=== PATIENT | female | born 1990 | race Caucasian/White ===

== ENCOUNTER → 2017-12-18 | Outpatient (CLI) | payer OTHER ==
[~2017-12-18] MED LIST: CALC-771 PO; ETHI1TAB18 PO; KET10 PO; LEVO50TA86 PO; LORA10CA3 PO; MULT-1335 PO; ONDA4TAB PO
== END ==
LOC: LAB 09:11
PROVIDERS: ATTEND Student in an Organized Health Care Education/Training Program
DX: O02.0 Blighted ovum and nonhydatidiform mole (principal); O99.280 Endocrine, nutritional and metabolic diseases complicating pregnancy, unspecified trimester
CPT/HCPCS: 36415; 84443; 84702

== ENCOUNTER → 2018-01-22 | Outpatient (CLI) | payer OTHER ==
[~2018-01-22] MED LIST changes: +SCOP1PAT16 ASDIRECTED
== END ==
LOC: LAB 12:46
PROVIDERS: ATTEND Student in an Organized Health Care Education/Training Program
DX: E03.9 Hypothyroidism, unspecified (principal)
CPT/HCPCS: 36415; 84443

== ENCOUNTER → 2018-01-31 | Outpatient (CLI) | payer OTHER ==
[~2018-01-31] MED LIST changes: +PROG200C16 PV
== END ==
LOC: LAB 12:02
PROVIDERS: ATTEND Student in an Organized Health Care Education/Training Program
DX: O09.299 Supervision of pregnancy with other poor reproductive or obstetric history, unspecified trimester (principal)
CPT/HCPCS: 36415; 84702

== ENCOUNTER → 2018-02-02 | Outpatient (CLI) | payer OTHER | LOC: LAB 12:10 | PROVIDERS: ATTEND Student in an Organized Health Care Education/Training Program | DX: O09.299 Supervision of pregnancy with other poor reproductive or obstetric history, unspecified trimester (principal) | CPT/HCPCS: 36415; 84702 ==

== ENCOUNTER → 2018-02-05 | Outpatient (CLI) | payer OTHER ==
[2018-02-07 12:45] LABS: PLATELET COUNT, AUTOMATED 258 K/uL (150-450)
== END ==
LOC: LAB 09:02
PROVIDERS: ATTEND Student in an Organized Health Care Education/Training Program
DX: Z34.91 Encounter for supervision of normal pregnancy, unspecified, first trimester (principal)
CPT/HCPCS: 36415; 84702; 85025; 86592; 86703; 86762; 86850; 86900; 86901; 87088; 87340

== ENCOUNTER → 2018-02-15 | Outpatient (CLI) | payer OTHER ==
[~2018-02-15] MED LIST changes: +ONDA4TAB97 PO
== END ==
LOC: LAB 08:06
PROVIDERS: ATTEND Student in an Organized Health Care Education/Training Program
DX: O99.280 Endocrine, nutritional and metabolic diseases complicating pregnancy, unspecified trimester (principal); E03.9 Hypothyroidism, unspecified
CPT/HCPCS: 36415; 84443; 87491; 87591

== ENCOUNTER → 2018-05-24 | Outpatient (CLI) | payer OTHER ==
--- NOTE | 2018-05-24 13:43 | RADIOLOGY IMAGING REPORT ---
FACILITY: [facility] PATIENT NAME: Danyell Bailey : 1990 MR: [id number] V: [id number] EXAM DATE: ORDERING PHYSICIAN: GARY DELGADILLO TECHNOLOGIST: [place] [facility] [place] Patient: Danyell Bailey : 1990 Visit/Account:[id number] Date of Sevice: 05/24/2018 EXAMINATION: Ultrasound transabdominal OB > 14 weeks with anatomic evaluation HISTORY: Anatomic survey COMPARISON: None. TECHNIQUE: Transabdominal imaging was performed for assessment of the fetus and maternal pelvic structures. T ransvaginal imaging was not performed. FINDINGS: Placenta: Posterior without previa. Uterus: Gravid, otherwise normal Cervix: Long and closed. Maternal Ovaries: Not visualized. Maternal and other adnexa findings: Not evaluated Intrauterine gestations: One. presentation: Breech heart rate: Normal and regular at 156 bpm Amniotic fluid index: 14.1 cm Largest amniotic fluid pocket: 4.08 cm Gestational Parameters: BPD: 4.68 cm 20 weeks/ two days, 50% HC: 17.68 cm 20 weeks/ two days, 43% AC: 16.57 cm 21 weeks/ five days, 87% FL: 3.31 cm 20 weeks/ three days, 50% Average ultrasound age (AUA): 20 weeks/five days, JANET 10/06/2018 Estimated gestational age by JANET: 20 weeks/one days, JANET 10/10/2018 Estimated weight (EFW): 386 grams +/- seven grams EFW for JANET: 86 percentile Anatomic Survey: Intracranial structures, 4-chamber heart, stomach, kidneys, urinary bladder, spine, 3-vessel cord and cord insertion are unremarkable. Two upper and two lower extremities visualized. Cardiac ventricula r outflow tracts, palate and lips are unremarkable in appearance. IMPRESSION: Single viable fetus in which presentation with an estimated gestational age by measureme nts of 20 weeks and five days. Estimated gestational age by LMP is 20 weeks and one day. Report Dictated By: Fatemeh Cerna MD at 05/24/2018 1:33 PM Report E-Signed By: Fatemeh Cerna MD at 05/24/2018 1:40 PM WSN:[id number]
== END ==
LOC: US 07:58
PROVIDERS: ATTEND Student in an Organized Health Care Education/Training Program
DX: Z02.9 Encounter for administrative examinations, unspecified (principal)

== ENCOUNTER → 2018-09-10 | Outpatient (CLI) | payer OTHER ==
[~2018-09-10] MED LIST changes: +DIPH0.5S2 IM
== END ==
LOC: LAB 08:21
PROVIDERS: ATTEND Advanced Practice Midwife
DX: Z36.85 Encounter for antenatal screening for Streptococcus B (principal)
CPT/HCPCS: 87081

== ENCOUNTER → 2018-09-21 | Outpatient (CLI) | payer OTHER | LOC: LAB 14:45 | PROVIDERS: ATTEND Obstetrics & Gynecology | DX: O26.893 Other specified pregnancy related conditions, third trimester (principal) | CPT/HCPCS: 84112 ==

== ENCOUNTER → 2018-10-10 | Outpatient (CLI) | payer OTHER ==
--- NOTE | 2018-10-10 16:26 | RADIOLOGY IMAGING REPORT ---
[facility] PATIENT NAME: Danyell Bailey : 1990 MR: [id number] V: [id number] EXAM DATE: ORDERING PHYSICIAN: ARNULFO HAMMER TECHNOLOGIST: Location: [facility] - [place] Patient: Danyell Bailey : 1990 Visit/Account:[id number] Date of Sevice: 10/10/2018 EXAMINATION: Ultrasound biophysical profile HISTORY: Postdates COMPARISON: None. FINDINGS: Intrauterine gestations: One. presentation: Vertex. heart rate: normal and regular at 152 bpm Amniotic fluid index: 12.7 cm Largest amniotic fluid pocket 5.7 cm Placenta: Fundal without previa. Biophysical profile: breathing movement 2 Gross body movement 2 tone 2 Qualitative amniotic fluid volume 2 Total biophysical profile score of 8/8 IMPRESSION: 1. Biophysical profile: 8/8 2. Vertex positioning. Normal LUCERO Report Dictated By: Duran Cosme MD at 10/10/2018 3:33 PM Report E-Signed By: Duran Cosme MD at 10/10/2018 4:18 PM WSN:[id number]
== END ==
LOC: US 01:56
PROVIDERS: ATTEND Advanced Practice Midwife
DX: Z34.83 Encounter for supervision of other normal pregnancy, third trimester (principal); Z3A.40 40 weeks gestation of pregnancy

== ENCOUNTER 2018-10-15 17:51 | Inpatient (IN) | payer OTHER ==
[2018-10-15] MEDS ORDERED: ceFAZolin(*) 2GM/D5W 50ML 50 ML IVPB PRN (18:44)
[2018-10-15] MEDS ORDERED: FAMOTIDINE(*) 20MG/50ML PREMIX 50 ML IVPB PRN (18:44)
[2018-10-15] MEDS ORDERED: OXYTOCIN 30 UNIT/NS 500 ML 500 ML IV PRN (18:44)
[2018-10-15] MEDS ORDERED: FLUSH 10 ML SYR IVP PRN (18:45)
[2018-10-15] MEDS ORDERED: METOCLOPRAMIDE 10 MG/2 ML SDV IVP PRN (18:45)
[2018-10-15] MEDS ORDERED: fentaNYL CITR 100 MCG/2 ML AMP IVP PRN (18:45)
[2018-10-15] MEDS ORDERED: LIDOCAINE/SOD BICARB 8.4% SYR SC PRN (18:45)
[2018-10-15] MEDS ORDERED: LIDOCAINE 1% LOCAL 300 MG/30ML INJ PRN (18:45)
[2018-10-15 19:05] LABS: PLATELET COUNT, AUTOMATED 169 K/uL (150-450)
--- NOTE | 2018-10-15 20:52 | History & Physical ---
History of Present Illness Age of Patient: 28 : 2 Para or TPAL: 0 (10) EDC per LMP: Oct 10, 2018 Estimated Gestational Age: 40 (5/7) Chief Complaint "water broke" History of Present Illness Pt presents to OB with report of contractions and rupture of membranes at 1715, small amount of clear fluid, pink tinged. Pt states she was seen in clinic today by Dr. Briggs for REBECCA visit and was examined and noted to be 2/80/-2, membranes were stripped. Reports +FM. Pt denies headache, epigastric pain or visual changes. Pt is accompanied by her and parents. Pt reports pain in the low back and pubic area, feels some rectal pressure with contractions. History Patient's Blood Type: A Positive Rubella Status: Immune Group B Strep Screen: Negative Miscellaneous Screens/Cultures: negative GBS Obstetrical History: Pt has had routine OB care. Pts prior ended in miscarriage in December 2017. This has been uncomplicated. Past Medical History: Pt has a history hypothyroidism and takes Levothyroxine and anemia. Pt denies any prior surgeries. Allergies: Coded Allergies: No Known Drug Allergies (Unverified , 03/13/13) Family History: FH: diabetes mellitus GRANDPARENTS FH: thyroid condition MOTHER MGM Med Rec Home Meds Active Scripts Levothyroxine Sodium (LEVOTHYROXINE SODIUM) 50 Mcg Tablet, 50 MCG PO QDAY, #30 TAB 3 Refills Prov:GARY DELGADILLO DO 07/31/18 Reported Medications Multivitamins W-Minerals (Multiple Vitamin) 1 Tab Tablet, 1 TAB PO DAILY 10/05/11 Review of Systems All Systems Reviewed/Normal: Yes, Except as Noted Exam General Exam General Apperance: Alert/Awake/No Acute Distress Neuro: No Gross deficits Cardiovascular: Regular Rate and Rhythm Respiratory: No Respiratory Distress Abdomen: Soft, Non-Tender, Non-Distended, Gravid - Non-Tender Extremities: Warm Psychological: Alert & Oriented X3 Vaginal Discharge/Fluid?: Bloody Show, Clear Fluid Uterine Contraction Strength: Moderate UC Resting Tone: Soft Fetus Feeling Movement?: Yes Estimated Weight(grams): 3200 Heart Tone Variabilty: Moderate FHT Accelerations: 15X15 FHT Decelerations: None FHT Category: I Medical Decision Making Data Points Result Diagram: 10/15/18 1853 Pre-Admit Course Medical Record Review: Yes VTE Prophylasis: Adult Deep Vein Thrombosis/Pulmonary: No Pharmacological Contraindicati: Pt at Low Risk for VTE Mechanical Contraindications: Pt at Low Risk for VTE Assessment and Plan Hospital Day: 1 FLEET COORDINATOR Assessment: Stable FLEET COORDINATOR Plan: Routine Labor Care Problems: (1) Rupture of membranes with clear amniotic fluid Assessment & Plan: 1. Labor state: early labor, rupture of membranes x 3 hours 2. well being: category 1 FHT, continue to monitor 3. Maternal well being: normotensive, afebrile, continue to monitor VS 4. PNL: A+, neg antibody screen, negative CT/GC, NR HepB Ag negative, Rubella immune, GBS negative 5. Pain management: patient desires NCB, recommend continued ambulation, repositioning, tub or shower. 6. Desires to breastfeed 7. cb: hypothyroidism, will continue to admin levothyroxine as ordered. 8. Anticipate , will continue expectant managment. Dr. Delgadillo, DO informed and agrees with plan. . (2) Supervision of normal intrauterine in primigravida (3) Hypothyroidism affecting (4) Normal labor Condition Stable. Consult Informed Dr. Delgadillo and agrees with plan. ARPIT RANDHAWA CNM Oct 15, 2018 20:52
--- NOTE | 2018-10-15 23:23 | Labor Progress Note ---
Labor Subjective Progress Notes Subjective Pt is getting much more uncomfortable, reports it is difficult to rest. Had BM and feels less rectal pressure Feeling Movement?: Yes Vaginal Discharge/Fluid: Bloody Show, Clear Fluid Labor Pain: Severe (coping, breathing and position change) Labor Objective Vaginal Discharge/Fluid?: Bloody Show Cervical Dialation: 6 Cervical Effacement (%): 75 Cervical Consistency: Soft Cervical Position: Mid Station: -1 Presentation: Vertex Uterine Contractions(Q min): 3 Uterine Contraction Strength: Strong UC Resting Tone: Soft Fetus Heart Tones: 130 Heart Tone Variabilty: Moderate FHT Accelerations: 15X15 FHT Decelerations: Early FHT Category: I (periodic early decels but not with every contraction. ), II General Exam General Appearance: Alert/Awake/No Acute Distress, Afebrile Psychological: Alert & Oriented X3 Other Result Diagram: 10/15/18 9134 Assessment and Plan Problems: (1) Rupture of membranes with clear amniotic fluid (2) Supervision of normal intrauterine in primigravida (3) Hypothyroidism affecting (4) Normal labor Assessment & Plan: 1. Labor state: early labor, rupture of membranes x 6 hours 2. well being: category 1 FHT, continue to monitor 3. Maternal well being: normotensive, afebrile, continue to monitor VS 4. PNL: A+, neg antibody screen, negative CT/GC, NR HepB Ag negative, Rubella immune, GBS negative 5. Pain management: patient desires NCB, coping well position change and breathing, may consider IV meds. 6. Desires to breastfeed 7. cb: hypothyroidism, will continue to admin levothyroxine as ordered. 8. Anticipate , will continue with expectant managment.. ARPIT RANDHAWA CNM Oct 15, 2018 23:23
[2018-10-16] MEDS: fentaNYL CITR 100 MCG/2 ML AMP IVP PRN ×3 (00:40→02:15)
[2018-10-16] MEDS: LR(*) 1000 ML BAG 1,000 ML IV SCH ×2 (00:42→04:38)
--- NOTE | 2018-10-16 01:01 | Labor Progress Note ---
Labor Subjective Progress Notes Subjective Pt continues to report urge to push but able to control pushing with coaching. Desires medication for pain Feeling Movement?: Yes Vaginal Discharge/Fluid: Bloody Show, Clear Fluid Labor Pain: Severe Labor Objective Vaginal Discharge/Fluid?: Bloody Show, Clear Fluid Cervical Dialation: 7 Cervical Consistency: Soft (anterior lip swollen) Cervical Position: Mid Station: -1 Presentation: Vertex Uterine Contractions(Q min): 3 Uterine Contraction Strength: Strong UC Resting Tone: Soft Fetus Heart Tones: 125 Heart Tone Variabilty: Moderate FHT Accelerations: 15X15 FHT Decelerations: Variable (periodically noted when patient has urge to push) FHT Category: I, II General Exam General Appearance: Alert/Awake/No Acute Distress Psychological: Alert & Oriented X3 Other Result Diagram: 10/15/18 5226 Assessment and Plan Problems: (1) Rupture of membranes with clear amniotic fluid Assessment & Plan: Assessment & Plan: 1. Labor state: early labor, rupture of membranes x 6 hours 2. well being: category 1 FHT, suspect direct OP, occasional early and variables when patient feels urge to push, continue to monitor and coaching to avoid pushing 3. Maternal well being: normotensive, afebrile, continue to monitor VS 4. PNL: A+, neg antibody screen, negative CT/GC, NR HepB Ag negative, Rubella immune, GBS negative 5. Pain management: patient continues to feel urge to push, will medicate for pain. 6. Desires to breastfeed 7. cb: hypothyroidism, will continue to admin levothyroxine as ordered. 8. Anticipate , will continue with expectant management at this time, will medicate for pain and encourage rest. .. (2) Supervision of normal intrauterine in primigravida (3) Hypothyroidism affecting (4) Normal labor ARPIT RANDHAWA CNM Oct 16, 2018 01:01
--- NOTE | 2018-10-16 02:56 | Labor Progress Note ---
Labor Subjective Progress Notes Subjective Pt states she is comfortable between contractions but still feeling rectal pressure and urge to push. Desires medication for pain. Feeling Movement?: Yes Vaginal Discharge/Fluid: Bloody Show, Small Amount Labor Pain: Moderate Labor Objective Vaginal Discharge/Fluid?: Bloody Show Cervical Dialation: 7 Cervical Effacement (%): 100 (anterior cervical swelling still present) Cervical Consistency: Soft Cervical Position: Mid Station: 0 Presentation: Vertex (LOT position ) Uterine Contractions(Q min): 2 (to 3 min, occasional coupling) Uterine Contraction Strength: Strong UC Resting Tone: Soft Fetus Heart Tones: 130 Heart Tone Variabilty: Minimal FHT Accelerations: 15X15 (accel present with cerivcal exam) FHT Decelerations: None FHT Category: I General Exam General Appearance: Alert/Awake/No Acute Distress (sleeping in between contractions) Abdomen: Gravid - Non-Tender Other Result Diagram: 10/15/18 7550 Assessment and Plan Problems: (1) Rupture of membranes with clear amniotic fluid (2) Supervision of normal intrauterine in primigravida (3) Hypothyroidism affecting (4) Normal labor Status: Acute Assessment & Plan: 1. Labor state: active labor rupture of membranes x 10 hours 2. well being: category 1 FHT, continue to monitor, LOT position, rotated from OP 3. Maternal well being: normotensive, afebrile, continue to monitor VS 4. PNL: A+, neg antibody screen, negative CT/GC, NR HepB Ag negative, Rubella immune, GBS negative 5. Pain management: medicated for 3rd dose of fentanyl, may consider epidural if no significant change next exam. 6. Desires to breastfeed 7. cb: hypothyroidism, will continue to admin levothyroxine as ordered. 8. Anticipate , will continue to monitor descent and cervical change, will reassess in 2-3 hours, if no change may consider augmentation ARPIT RANDHAWA CNM Oct 16, 2018 02:56
[2018-10-16] MEDS ORDERED: BUPIVACAINE 0.25% MPF INJ EPI PRN (05:15)
[2018-10-16] MEDS ORDERED: FENTANYL/ROPIVACAINE 100 ML BAG EPI PRN (05:15)
[2018-10-16] MEDS ORDERED: LIDO/EPI 2% MPF 1:200,000 20ML EPI PRN (05:15)
[2018-10-16] MEDS ORDERED: BUPIVACAINE 0.5% INJ 30ML VIAL EPI PRN (05:15)
[2018-10-16] MEDS ORDERED: LIDOCAINE/PF 2% 200MG/10ML AMP 200 MG/10 ML AMPUL EPI PRN (05:15)
--- NOTE | 2018-10-16 05:34 | Labor Progress Note ---
Labor Subjective Progress Notes Subjective Pt states she has been able to sleep since last dose of Fentanyl but states she still has an urge to push at the peak of contractions. Denies increased frequency or strength of contractions but also states she has been able to sleep through some. Pt is willing to try an epidural for pain control if no cervical c hange is noted. Feeling Movement?: Yes Vaginal Discharge/Fluid: Bloody Show Labor Pain: Moderate Labor Objective Vaginal Discharge/Fluid?: Bloody Show, Clear Fluid Cervical Dialation: 7 Cervical Effacement (%): 100 (cervical edema less pronounced anteriorly) Cervical Consistency: Soft Cervical Position: Mid Station: +1 Presentation: Vertex (CHRISTIAN now) Uterine Contractions(Q min): 4 Uterine Contraction Strength: Strong UC Resting Tone: Soft Fetus Heart Tone Variabilty: Moderate FHT Accelerations: 15X15 FHT Decelerations: None General Exam General Appearance: Alert/Awake/No Acute Distress Abdomen: Gravid - Non-Tender Psychological: Alert & Oriented X3 Other Result Diagram: 10/15/18 9280 Assessment and Plan Problems: (1) Rupture of membranes with clear amniotic fluid (2) Supervision of normal intrauterine in primigravida (3) Hypothyroidism affecting (4) Normal labor Status: Acute Assessment & Plan: 1. Labor state: active labor rupture of membranes x 12 h ours 2. well being: category 1 FHT, continue to monitor, CHRISTIAN position, rotated from OP 3. Maternal well being: normotensive, afebrile, continue to monitor VS 4. PNL: A+, neg antibody screen, negative CT/GC, NR HepB Ag negative, Rubella immune, GBS negative 5. Pain management: medicated with fentanyl x 4 doses, desires an epidural 6. Desires to breastfeed 7. cb: hypothyroidism, will continue to admin levothyroxine as ordered. 8. Anticipate , will place IUPC and augmentation with pitocin, increase pitocin until adequate UCs are established, once adequate reassess in 2 hours if not change will consult with OB supervisor network control operators ARPIT RANDHAWA CNM Oct 16, 2018 05:34
[2018-10-16] MEDS ORDERED: OXYTOCIN 30 UNIT/NS 500 ML 500 ML IV PRN (05:45)
--- NOTE | 2018-10-16 09:46 | Labor Progress Note ---
Labor Subjective Progress Notes Subjective Pt feeling some pressure and pain in the lower leg Feeling Movement?: Yes Vaginal Discharge/Fluid: Bloody Show, Clear Fluid Labor Pain: Comfortable Labor Objective Vaginal Discharge/Fluid?: Bloody Show, Clear Fluid Cervical Dialation: 10 Cervical Effacement (%): 100 Cervical Consistency: Soft Cervical Position: Mid Station: +2 Presentation: Vertex Uterine Contractions(Q min): 3 Uterine Contraction Strength: Moderate UC Resting Tone: Soft Fetus Heart Tone Variabilty: Moderate FHT Decelerations: Early FHT Category: II Other Result Diagram: 10/15/18 1670 Assessment and Plan Problems: (1) Rupture of membranes with clear amniotic fluid (2) Supervision of normal intrauterine in primigravida (3) Hypothyroidism affecting (4) Normal labor *Optional Permanent Comment*: 1. Labor state: complete and will begin; active labor rupture of membranes x 14 hours 2. well being: category 2 FHT, continue to monitor, CHRISTIAN position 3. Maternal well being: normotensive, afebrile, continue to monitor VS 4. PNL: A+, neg antibody screen, negative CT/GC, NR HepB Ag negative, Rubella i mmune, GBS negative 5. Pain management: epidural, comfortable 6. Desires to breastfeed 7. cb: hypothyroidism, will continue to admin levothyroxine as ordered. 8. Anticipate . pitocin at 8 mu/min, will begin pushing. Last Edited By: Stephanie Randhawa on Oct 16, 2018 09:46 Status: Acute STEPHANIE RANDHAWA [facility] Oct 16, 2018 09:46
--- NOTE | 2018-10-16 12:37 | Anesthesia OB Pre-Anes Eval ---
History of Present Illness Anesthesia Start Date: Oct 16, 2018 Anesthesia Start Time: 05:29 OB Anesthesia Diagnosis: induction - elective, other (40 weeks 5/7 days) Current Complication: other (Hypothyroidism) Complications: No EDC: Oct 10, 2018 : 2 Para: 0 Vital Signs: Stable (see RN notes) Pain Ratin Heart Tones: Normal Result Diagram: 10/15/18 1853 Weight (Pounds): 198 Past Medical History Medical History: other (Hypothyroidism) Surgical History: noncontributory, other ([place] Teeth) Hx Anesthesia Reactions: No Hx Family Anesthesia Reaction: No Current Medications: pitocin, pain medication Home Meds Active Scripts Levothyroxine Sodium (LEVOTHYROXINE SODIUM) 50 Mcg Tablet, 50 MCG PO QDAY, #30 TAB 3 Refills Prov:GARY DELGADILLO DO 07/31/18 Reported Medications Multivitamins W-Minerals (Multiple Vitamin) 1 Tab Tablet, 1 TAB PO DAILY 10/05/11 Allergies: Coded Allergies: No Known Drug Allergies (Unverified , 03/13/13) Anesthesia OB ROS Neurological: No migraines/headaches, No seizures, No neuropathy, No other ENT: Denies Tooth caps, Denies Loose teeth, Denies Chipped teeth, Denies Dentures, Denies Bridges, Denies Retainers, Denies Veneers, Denies Implants, Denies Tongue ring, Denies Other Pulmonary: No asthma, No smoker (pks/day/yrs), No other Airway Class: ll Cardiovascular ROS: No edema, No arrhythmia, No other GI ROS: NPO, clear liquids (clears at 0130) Last Solids Date: Oct 15, 2018 Last Solids Time: 20:00 ROS: No Herpes, No STD(s), No Liver Disease, No Renal Disease, No Other Endocrine ROS: No diabetes, No gestational diabetes; thyroid disorder (Hypothyroid); No other Musculoskeletal ROS: No low back pain, No low back injury, No scoliosis, No other ASA Classification: 2 Assessment and Plan Anesthesia Plan: LEB Assessment: Heart: RRR, no MRG, no edema, no syncope, no CP/SOB Resp: CTA Bilaterally Neuro: denies numbness/tingling/pain/paresthesias MAURY LOPEZ HAND INSERTER OPERATOR Oct 16, 2018 12:37
--- NOTE | 2018-10-16 12:44 | Procedure Note ---
Anesthetic Placement Note Anesthesia Plan: LEB Permit for Anesthesia Signed: Yes Anesthesia Technique: Patient Sitting Anesthesia Prep: Chlorhexidine (Betadine also used since no tint/dye in chlorhexidine) Interspace: L 3-4 Local Anesthetic: 1% Lidocaine, 25 Gauge Needle Amount Local - cc's: 2 Anesthesia Needle: 17g Touhy/Schliff Anesthesia Attempts: 1 Loss of Resistance: Normal Saline (good TEJINDER) Depth of TEJINDER (cm): 5.5 Epidural Needle Placement: No CSF, No Blood, No Parasthesia Catheter Insertion (cm): 6 (secured 11 cm at skin) Catheter Type: Canales - Spring Wound Epidural Dressing: Tegaderm, Tape (mefix), Other (Benzoin) Anesthesia Tray: Lot Number ([id number]), Expiration Date (09/03/2019), Reference Number ([id number]) Comment: Tolerated and cooperated well Anesthesia Medications: Epidural Test Dose: 1.5 Lido/Epi (1:200,000), Dose - mL (3), Time (0551), Negative Epidural Loading Dose: Dose - ml (6), Time (0554), Other (0.5% lidocaine ) Epidural Infusion: 0.2% Ropivicaine, With Fentanyl 2mcg/ml, Start Time: (0603), Other (6 mL bolus of infusion solution given at pump start) Epidural Pump Setting: Bolus Dose - mL (6), Lockout - Minutes (15), Maintenance Rate - mL/hr (5), Maximum per Hour - mL (23) Complications: None Comment: Patient and spouse instructed on use of PCEA button and signs and symptoms of complications to watch for. Verbalize understanding MAURY LOPEZ CRNA Oct 16, 2018 12:44
--- NOTE | 2018-10-16 13:07 | Anesthesia Progress Note ---
Progress/Maintenance Anesthesia Note Date: Oct 16, 2018 Anesthesia Note Time: 12:45 Pain Intensity: 0 Pump: Off Sensory Level: T10-11 Motor Level: Bending Knees-Bilateral, Other (Most of sensation returned per patient) Assessment and Plan Anesthesia Plan: LEB Assessment: Baby delivered at 1213. Epidural worked very well per patient Assessment no evidence of complications related to the epidural Anesthesia Stop Day: Oct 16, 2018 Anesthesia Stop Time: 12:13 Epidural Catheter Removal: Removed Catheter Intact, Yes, Removed by: (RN (see RN notes)) Removal Date: Oct 16, 2018 MAURY LOPEZ CRNA Oct 16, 2018 13:07
[2018-10-16] MEDS ORDERED: LANOLIN OINT 7 GM TUBE TP PRN (13:10)
[2018-10-16] MEDS ORDERED: BENZOCAINE 20% 60 ML BTL TP PRN (13:10)
[2018-10-16] MEDS ORDERED: GLYCERIN/WITCH HAZEL LEAF 1 PK TP PRN (13:10)
[2018-10-16] MEDS ORDERED: ACETAMINOPHEN 325 MG TAB PO PRN (13:10)
[2018-10-16] MEDS ORDERED: MAGNESIUM HYDROXIDE* 30ML UDCP PO PRN (13:10)
[2018-10-16] MEDS ORDERED: HYDROCORTISONE 2.5% CR 30GM TB PR PRN (13:10)
--- NOTE | 2018-10-16 13:35 | OB Delivery Note ---
Delivery Note Vaginal Delivery Type: Spont. Vaginal Delivery Delivery Date: Oct 16, 2018 Delivery Time: 12:13 Estimated Gestational Age(wks): 40 Length of Labor Stage I (hrs): 13 Length of Labor Stage II (hrs): 3 Labor Stage III (minutes): 6 Delivery Anesthesia: Epidural Infant Sex: Female Traver Apgars: 1 Minute (7), 5 Minute (8) Repair Needed: Vaginal, Periurethral (bilateral), 1st Degree Estimated Blood Loss: 300 Notes: Pt initially presented at 1800 following a SROM at 1715 clear fluid. Pt on admit was 3/70/-2 and had a reactive strip. Pt desired expectant management. Pt began tj regularly and progressed to active labor at 2300. Pt ambulated, changed position frequently and continued with NCB. On exam at 2300, fetus was noted to be in a OP position. Pt was reassessed at 0026 and was 7cm and now LOT. Pt desired medication for pain and was dosed with Fentanyl. Pt got good relief and was able to sleep some. Pt was reassessed at 0240 and was still 7 cm but had brought the vertex to a -1 station. Pt was reassessed at 0500 and was still 7cm. Discussed options and pt agreed to Pitocin augmentation and epidural for analgesia. At 0635, pt was comfortable and SVE done noted to 9cm. Pt had periodic early decels, cat 2 FHT. Pt continued to progress slowly and was complete at 0925. Pt began active pushing efforts. Cat 2 FHT with pushing with variable decels and good return to baseline. Mother remained afebrile. Pt continued with good pushing efforts. A max dose of pitocin 10 mu/min just prior to delivery. Dr. Camacho was called to stand by due to the duration of pushing. Pt delivered the vertex in a OA position, the posterior hand was near the face, posterior shoulder was reduced easily and a viable female was delivered. Cord clamping was delayed x 70 sec. Cord was clamped and cut, 3VC noted. Cord blood was obtained. Placenta delivered intact in [facility]. Apgars 7/9. Perineum was inspected and a small 1st degree vaginal laceration was noted and repaired with 3-0 Vicryl. Bilateral periurethral abrasions were noted, L periurethral laceration was repaired with 2 interrupted sutures. Weight was not available at the time of dictation. Both mother and baby are stable at time of note. Instructor Pilot in Attendence: ARPIT Teran CNM Oct 16, 2018 13:35
[2018-10-16] MEDS ORDERED: LR(*) 1000 ML BAG 1,000 ML ONE (15:31)
[2018-10-16 15:55] VITALS: BP 146/75
[2018-10-16] MEDS: IBUPROFEN 800 MG TAB PO PRN ×2 (16:00→23:32)
[2018-10-16 19:30] VITALS: BP 111/60
[2018-10-16] MEDS: DOCUSATE CALCIUM 240 MG CAP PO SCH (20:26)
[2018-10-16 23:33] VITALS: BP 121/66
[2018-10-17 03:59] VITALS: BP 122/79
[2018-10-17 08:55] VITALS: BP 118/66
--- NOTE | 2018-10-17 09:28 | Anesthesia Post Eval Note ---
Anesthesia Post Eval Note Normal. See RN charting Pt able to participate in Eval: Yes Cardiovascular Status: Satisfactory Respiratory Status: Satisfactory Pain Managment: Satisfactory PO Nausea/Vomiting: Satisfactory Temperature Management: Satisfactory Mental Status: Satisfactory, Alert, Oriented X3 Post-Op Hydration Status: Satisfactory, Tolerating PO Well, Voiding w/o Difficulty Anesthesia Type: LEB Anesthesia Tolerance: Neuro exam normal. Pt reports no evidence of complications related to epidural MAURY LOPEZ THREAD GRINDER Oct 17, 2018 09:28
[2018-10-17] MEDS: DOCUSATE CALCIUM 240 MG CAP PO SCH (09:50)
[2018-10-17] MEDS: IBUPROFEN 800 MG TAB PO PRN (09:50)
--- NOTE | 2018-10-17 10:05 | OB/GYN Progress Note ---
OB Subjective Progress Notes GI: POS Flatus; NEG Nausea, NEG Vomiting, NEG Bowel Movement : Voiding Well, Vaginal Bleeding, Scant Pain: Mild, Comfortable, Tolerating PO Pain Meds Neurological: No Headache OB Objective Physical Exam Vital Signs Date Time Temp Pulse Resp B/P (MAP) Pulse Ox O2 Delivery O2 Flow Rate FiO2 10/17/18 03:59 97.6 88 16 122/79 (93) 10/16/18 15:55 92 Room Air Intake and Output 10/17/18 07:04 Intake Total 1500 ml Output Total 1250 ml Balance 250 ml Intake Oral 0 ml IV Total 1500 ml Output Urine Total 1250 ml # Voids 4 General Appearance: Alert/Awake/No Acute Distress Neurological: No Gross deficits Respiratory: No Respiratory Distress Abdomen: Soft, Non-Tender, Non-Distended, Fundus Firm Extremities: No Cyanosis,Clubbing or Edema, Warm Integumentary: Skin Intact without Lesions or Rash Psychological: Alert & Oriented X3 Result Diagram: 10/15/18 4763 Assessment and Plan 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 Labor state: complete and will begin; active labor rupture of membranes x 14 hours 2. well being: category 2 FHT, continue to monitor, CHRISTIAN position 3. Maternal well being: normotensive, afebrile, continue to monitor VS 4. PNL: A+, neg antibody screen, negative CT/GC, NR HepB Ag negative, Rubella immune, GBS negative 5. Pain management: epidural, comfortable 6. Desires to breastfeed 7. cb: hypothyroidism, will continue to admin levothyroxine as ordered. 8. Anticipate . pitocin at 8 mu/min, will begin pushing. Last Edited By: Stephanie Pereira on Oct 16, 2018 09:46 Status: Resolved (5) (spontaneous vaginal delivery) ROLLY ROBERTS DO Oct 17, 2018 10:05
[2018-10-17] MEDS ORDERED: IBUP800T37 PO (10:08)
[2018-10-17] MEDS ORDERED: DOCU240C67 PO (10:08)
--- NOTE | 2018-10-17 10:10 | OB/GYN Discharge Summary ---
Discharge Summary Reason for Hosp/Final Diag: (1) Rupture of membranes with clear amniotic fluid Status: Resolved (2) Supervision of normal intrauterine in primigravida Status: Resolved (3) Hypothyroidism affecting Status: Chronic (4) Normal labor *Optional Permanent Comment*: 1. Labor state: complete and will begin; active labor rupture of membranes x 14 hours 2. well being: category 2 FHT, continue to monitor, CHRISTIAN position 3. Maternal well being: normotensive, afebrile, continue to monitor VS 4. PNL: A+, neg antibody screen, negative CT/GC, NR HepB Ag negative, Rubella immune, GBS negative 5. Pain management: epidural, comfortable 6. Desires to breastfeed 7. cb: hypothyroidism, will continue to admin levothyroxine as ordered. 8. Anticipate . pitocin at 8 mu/min, will begin pushing. Last Edited By: Stephanie Pereira on Oct 16, 2018 09:46 Status: Resolved (5) (spontaneous vaginal delivery) Status: Resolved Lates Vital Signs Vital Signs Date Time Temp Pulse Resp B/P (MAP) Pulse Ox O2 Delivery O2 Flow Rate FiO2 10/17/18 03:59 97.6 88 16 122/79 (93) 10/16/18 15:55 92 Room Air Weight (Pounds): 198 Result Diagram: 10/15/18 0667 Condition: Improved Discharge: Home, Self [facility] Meds Active Scripts Levothyroxine Sodium (LEVOTHYROXINE SODIUM) 50 Mcg Tablet, 50 MCG PO QDAY, #30 TAB 3 Refills Prov:GARY DELGADILLO 07/31/18 Reported Medications Multivitamins W-Minerals (Multiple Vitamin) 1 Tab Tablet, 1 TAB PO DAILY 10/05/11 Follow up with: [facility] [phone] ([address] Calero ) Follow up in: 2 wks PO Discharge Diet: As Tolerates Discharge Activity: As Tolerates, No Heavy Lifting x 6 wks, Pelvic Rest (no sex, tampons or douching for 6 weeks. ) ROLLY CALERO DO Oct 17, 2018 10:10
== END 2018-10-17 14:45 | disposition home or self-care (01) | DRG 807 ==
LOC: OB 17:51
PROVIDERS: ADMIT Student in an Organized Health Care Education/Training Program; ATTEND Student in an Organized Health Care Education/Training Program
PROC: 10E0XZZ Delivery of Products of Conception, External Approach (ICD-10-PCS; principal; 2018-10-16)
PROC: 0HQ9XZZ Repair Perineum Skin, External Approach (ICD-10-PCS; 2018-10-16)
DX: O76 Abnormality in fetal heart rate and rhythm complicating labor and delivery (principal); Z37.0 Single live birth; O99.284 Endocrine, nutritional and metabolic diseases complicating childbirth; E03.9 Hypothyroidism, unspecified; O70.0 First degree perineal laceration during delivery; Z3A.40 40 weeks gestation of pregnancy; Z79.899 Other long term (current) drug therapy
CPT/HCPCS: 36415; 85025; 86850; 86900; 86901; J2590; J3010; J7120